=== PATIENT | female | born 1995 | race African-American/Black ===

== ENCOUNTER 2025-03-05 23:45 | Emergency (ER) | payer MEDICAID ==
[~2025-03-05] VITALS: Ht 157.5 cm; Wt 107.3 kg
[2025-03-06] MEDS ORDERED: ROCEPHIN 1 GM-D5W BAG 50 ML IV ONE (00:04)
[2025-03-06] MEDS ORDERED: NS 1000ML 1,000 ML ONE (00:06)
[2025-03-06 00:09] VITALS: BP 136/91; PULSE 86; RESP 16; TEMP 98.4; O2SAT 98
[2025-03-06] MEDS: NS 1000ML 1,000 ML IV STA (00:09)
[2025-03-06] MEDS: ROCEPHIN 1 GM-D5W BAG 50 ML IV SCH (00:09)
[2025-03-06 00:25] LABS: LEUKOCYTE ESTERASE ,URINE 1+ (NEGATIVE); NITRATE,URINE NEGATIVE (NEGATIVE)
[2025-03-06 00:31] LABS: APPEARANCE,URINE HAZY; UA COLOR YELLOW
[2025-03-06] MEDS ORDERED: CEFD300C2 PO (00:37)
[2025-03-06 00:38] VITALS: BP 118/78; PULSE 77; RESP 18; O2SAT 100
[2025-03-06 01:23] VITALS: BP 128/76; PULSE 77; RESP 18; TEMP 98.4; O2SAT 100
== END 2025-03-06 01:19 | disposition home or self-care (01) ==
LOC: ER 23:45
DX: O23.41 Unspecified infection of urinary tract in pregnancy, first trimester (principal); N30.00 Acute cystitis without hematuria; Z3A.13 13 weeks gestation of pregnancy; Z91.040 Latex allergy status
CPT/HCPCS: 99284; 87086; 81001; 96365; J7030